=== PATIENT | male | born 1985 | race Caucasian/White ===

== ENCOUNTER 2020-05-19 18:30 | Inpatient (IN) | payer OTHER ==
[~2020-05-19] VITALS: Ht 177.8 cm; Wt 83.8 kg
[2020-05-19 19:42] LABS: BASO % 0.2 % (0.0-1.0); EOS # 0.1 10^3/uL (0.0-0.5); EOS % 0.8 % (0.0-3.0); HEMATOCRIT 44.5 % (42.0-52.0); HEMOGLOBIN 14.6 g/dl (13.5-17.5); LYMPH # 2.4 10^3/uL (1.5-5.0); LYMPH % 13.1 % (24.0-44.0); MEAN CORPUSCULAR HEMOGLOBIN 28.2 pg (27.0-33.0); MEAN CORPUSCULAR HGB CONC 32.8 g/dl (32.0-36.5); MEAN CORPUSCULAR VOLUME 86.1 fl (80.0-96.0); MONO # 1.5 10^3/uL (0.0-0.8); NEUTROPHILS # 14.1 10^3/uL (1.5-8.5); NEUTROPHILS % 77.5 % (36.0-66.0); PLATELET COUNT, AUTOMATED 309 10^3/uL (150-450); RED BLOOD COUNT 5.17 10^6/uL (4.30-6.10); WHITE BLOOD COUNT 18.2 10^3/uL (4.0-10.0)
[2020-05-19] MEDS ORDERED: MORPHINE 4 MG/ML 1ML VIAL/SYRINGE (J2270) IV PRN (19:45)
[2020-05-19] MEDS ORDERED: ONDANSETRON 4MG/2ML VIAL IV ONE (19:45)
[2020-05-19] MEDS ORDERED: ISOVUE-370 76% 100ML VIAL As Ordered ONE (20:28)
--- NOTE | 2020-05-19 21:05 | REPVR ---
PROCEDURE INFORMATION: Exam: CT Abdomen And Pelvis With Contrast Exam date and time: 05/19/2020 8:36 PM Age: 34 years old Clinical indication: Abdominal pain; Additional info: Rlq R/O appy TECHNIQUE: Imaging protocol: Computed tomography of the abdomen and pelvis with intravenous contrast. Radiation optimization: All CT scans at this facility use at least one of these dose optimization techniques: automated exposure control; mA and/or kV adjustment per patient size (includes targeted exams where dose is matched to clinical indication); or iterative reconstruction. Contrast material: ISOVUE 370; Contrast volume: 100 ml; Contrast route: INTRAVENOUS (IV); COMPARISON: No relevant prior studies available. FINDINGS: Liver: Normal. No mass. Gallbladder and bile ducts: Normal. No calcified stones. No ductal dilation. Pancreas: Normal. No ductal dilation. Spleen: Normal. No splenomegaly. Adrenal glands: Normal. No mass. Kidneys and ureters: Normal. No hydronephrosis. Stomach and bowel: Dilated loop of ileum in the right lower quadrant associated with a narrowed segment of the terminal ileum associated with wall thickening and mucosal enhancement, findings consistent with inflammatory bowel disease. Appendix: The appendix demonstrates diffuse distention measuring 12 mm with Ingrid appendiceal inflammation, consistent with acute appendicitis. No abscess or fluid collection demonstrated. Intraperitoneal space: Unremarkable. No free air. No significant fluid collection. Vasculature: Unremarkable. No abdominal aortic aneurysm. Lymph nodes: Unremarkable. No enlarged lymph nodes. Urinary bladder: Unremarkable as visualized. Reproductive: Unremarkable as visualized. Bones/joints: Unremarkable. No acute fracture. Soft tissues: Unremarkable. IMPRESSION: 1. Acute appendicitis possibly related to inflammatory bowel disease. 2. Dilated loop of ileum in the right lower quadrant associated with a narrowed segment of the terminal ileum associated with wall thickening and mucosal enhancement, findings consistent with inflammatory bowel disease. A critical call has been made to speak with the ordering physician/practitioner. This report will be amended once consultation has occurred. Electronically signed by: Abdi Kilpatrick On 05/19/2020 21:06:09 PM
[2020-05-19] MEDS ORDERED: NALOXONE INJ 0.4MG/1ML VIAL (J2310 PER 1MG) IV STA (21:21)
[2020-05-19] MEDS ORDERED: NALOXONE INJ 0.4MG/1ML VIAL (J2310 PER 1MG) As Ordered ONE (21:23)
[2020-05-19] MEDS ORDERED: NALOXONE 2MG/2ML SYRINGE (J2310 PER 1MG) IV STA (21:30)
[2020-05-19] MEDS ORDERED: NS 1,000 ML IV SCH (21:30)
[2020-05-19] MEDS ORDERED: NALOXONE 2MG/2ML SYRINGE (J2310 PER 1MG) As Ordered ONE (21:32)
[2020-05-19] MEDS ORDERED: PIPERACILLIN/TAZOBACTAM SOD 3.375 GM in D5W MINI-BAG PLUS 50 ML IV ONE (22:00)
[2020-05-19] MEDS ORDERED: KETOROLAC 30 MG/ML 1ML VIAL IV PRN (22:30)
[2020-05-19] MEDS ORDERED: ACETAMINOPHEN TAB 650MG DOSE (2X325MG) PO PRN (22:30)
[2020-05-19] MEDS ORDERED: ONDANSETRON 4MG/2ML VIAL IV PRN (22:30)
[2020-05-19] MEDS: NS 1,000 ML IV SCH (22:52)
[2020-05-20 01:50] VITALS: BP 155/66
[2020-05-20 02:55] LABS: HEMATOCRIT 42.2 % (42.0-52.0); HEMOGLOBIN 13.4 g/dl (13.5-17.5); MEAN CORPUSCULAR HEMOGLOBIN 27.8 pg (27.0-33.0); MEAN CORPUSCULAR HGB CONC 31.8 g/dl (32.0-36.5); MEAN CORPUSCULAR VOLUME 87.6 fl (80.0-96.0); PLATELET COUNT, AUTOMATED 273 10^3/uL (150-450); RED BLOOD COUNT 4.82 10^6/uL (4.30-6.10); WHITE BLOOD COUNT 18.6 10^3/uL (4.0-10.0)
[2020-05-20 06:00] VITALS: BP 153/68
[2020-05-20] MEDS: NS 1,000 ML IV SCH (06:18)
[2020-05-20] MEDS: PIPERACILLIN/TAZOBACTAM SOD 3.375 GM in D5W MINI-BAG PLUS 50 ML IV SCH ×3 (06:18→18:22)
[2020-05-20] MEDS: SENOKOT S TAB PO SCH ×2 (08:10→20:44)
[2020-05-20 09:53] LABS: HEMATOCRIT 40.9 % (42.0-52.0); HEMOGLOBIN 13.3 g/dl (13.5-17.5); MEAN CORPUSCULAR HEMOGLOBIN 28.6 pg (27.0-33.0); MEAN CORPUSCULAR HGB CONC 32.5 g/dl (32.0-36.5); PLATELET COUNT, AUTOMATED 258 10^3/uL (150-450); RED BLOOD COUNT 4.65 10^6/uL (4.30-6.10); WHITE BLOOD COUNT 13.8 10^3/uL (4.0-10.0)
--- NOTE | 2020-05-20 10:58 | HPE ---
CONSULTATION DATE OF CONSULT: 05/20/20 REASON FOR CONSULT: Abdominal pain. HISTORY OF PRESENT ILLNESS: Patient is a 34-year-old male who started experiencing right lower quadrant abdominal pain yesterday. He was driving from [place] to [place]. He had to stop here on the way because the pain was getting so severe he could not make it home. In the Emergency Room his vitals were stable, his white count was elevated to 18.[address] was suspicious for appendicitis so I was called to admit him. I admitted him overnight with plan to take him to the operating room in the morning of appendectomy. While I was at home I pulled up his images and was able to see that his terminal ileum was also severely thickened and inflamed in addition to the appendix raising suspicion moreso for inflammatory bowel disease versus terminal ileitis as opposed to just a simple appendicitis therefore surgery was canceled and I saw him this morning. He has had a couple of doses of antibiotics so far, he is already feeling improved. His white count did not improve into the middle of the night, but this morning it is from 18 down to 13.8. He has minimal pain, denies any nausea or vomiting. No fevers or chills. No problems with bowel movements. He has never had any history of bowel movement issues in the past. No diarrhea or constipation. No bloody stools. No family history of GI diseases. No prior colonoscopy or surgery or trauma to the abdomen. No recent illnesses either. PAST MEDICAL HISTORY: Negative. PAST SURGICAL HISTORY: Negative. ALLERGIES: None. HOME MEDICATIONS: None. SOCIAL HISTORY: Drinks socially, smokes a pack a day, also smokes marijuana. No other drug abuse. FAMILY HISTORY: Noncontributory. REVIEW OF SYSTEMS: Pertinent positives and negatives as stated in the HPI. PHYSICAL EXAMINATION: General: Patient is A&O times 3, in no acute distress. Vital signs: Temp 97.8, pulse 78, respirations 18, blood pressure 153/68, pulse ox 98% on room air. HEENT: Pupils equal, round and reactive to light and accommodation. Heart: S1 and S2 regular rate and rhythm. Lungs: Clear to auscultation bilaterally. Abdomen: Soft, mild tenderness in the right lower quadrant only, no guarding or rebound, no rigidity. Extremities: No clubbing, cyanosis or edema. LABORATORY DATA: White count 18.2 on admission down to 13.8, hemoglobin 13.3, platelets 258. IMAGING: CT abdomen and pelvis shows a dilated loop of ilium in the right lower quadrant with narrowed segment of the terminal ilium with wall thickening and mucosal enhancement - findings consistent with inflammatory bowel disease. The appendix is dilated at 12 mm with some periappendiceal inflammation consistent with acute appendicitis. No abscess or fluid collections demonstrated. ASSESSMENT AND PLAN: Patient is a 34-year-old male with inflammation around the terminal ilium as well as the appendix suspicious for terminal ileitis with reactive appendicitis possibly due to an underlying inflammatory bowel disease. Recommendation at this time is to avoid surgery due to it being very difficult to remove the appendix without interfering with the terminal ilium. He has already improved with just I.V. antibiotics. Plan is to start him on a low fiber diet. I have also discussed his case with GI who recommended a low dose steroid to start him on. We will start the steroid this morning, continue with the antibiotics. If he continues to improve and is feeling well by tomorrow we will plan for discharge home tomorrow and he can follow up with GI as an outpatient for possible scoping and treatment as needed.
[2020-05-20] MEDS: BUDESONIDE EC 3 MG CAP (ENTOCORT EC) PO SCH (12:35)
[2020-05-20 14:00] VITALS: BP 146/79
[2020-05-20 22:00] VITALS: BP 142/76
[2020-05-21] MEDS: PIPERACILLIN/TAZOBACTAM SOD 3.375 GM in D5W MINI-BAG PLUS 50 ML IV SCH ×2 (00:26→05:28)
[2020-05-21 06:00] VITALS: BP 121/70
[2020-05-21 07:35] LABS: HEMATOCRIT 41.1 % (42.0-52.0); MEAN CORPUSCULAR HGB CONC 31.6 g/dl (32.0-36.5); MEAN CORPUSCULAR VOLUME 88.6 fl (80.0-96.0); PLATELET COUNT, AUTOMATED 276 10^3/uL (150-450); RED BLOOD COUNT 4.64 10^6/uL (4.30-6.10); WHITE BLOOD COUNT 11.2 10^3/uL (4.0-10.0)
[2020-05-21 07:59] LABS: BLOOD UREA NITROGEN 12 MG/DL (7-18); CALCIUM LEVEL 8.4 MG/DL (8.5-10.1); CARBON DIOXIDE LEVEL 30 MEQ/L (21-32); CHLORIDE LEVEL 107 MEQ/L (98-107); CREATININE FOR GFR 1.02 MG/DL (0.70-1.30); GLOMERULAR FILTRATION RATE > 60.0 (>60); GLUCOSE, FASTING 120 MG/DL (70-100); POTASSIUM SERUM 3.9 MEQ/L (3.5-5.1); SODIUM LEVEL 140 MEQ/L (136-145)
[2020-05-21] MEDS ORDERED: BUDE3CAP PO (09:57)
[2020-05-21] MEDS ORDERED: METR-265 PO (09:57)
[2020-05-21] MEDS ORDERED: CIPR500T3 PO (09:57)
--- NOTE | 2020-05-21 09:59 | IPNPDOC ---
Text Note Date of Service The patient was seen on 05/21/20. NOTE Patient doing well. Tolerating regular food, no abdominal pain. He wishes to go home VS stable On exam looks well, very comfortable abdomen soft, nondistended, nontender Impression/Plan Probably inflammatory bowel disease reactive appendicitis OK to go home on cipro/flagyl and budesonide follow up with GI (Dr. Varghese) or if he wants somebody local in [facility] will need to coordinate with her FINE PATCHER for referral regular diet VS,Fishbone, I+O VS, Fishbone, I+O Laboratory Tests 05/21/20 07:18 Vital Signs Date Time Temp Pulse Resp B/P (MAP) Pulse Ox O2 Delivery O2 Flow Rate FiO2 05/21/20 06:00 98.2 85 21 121/70 (87) 98 Room Air I&O- Last 24 Hours up to 6 AM 05/21/20 06:00 Intake Total 2175 ml Output Total 0 ml Balance 2175 ml CHENTE CAMPBELL MD May 21, 2020 09:59
[2020-05-21] MEDS: BUDESONIDE EC 3 MG CAP (ENTOCORT EC) PO SCH (10:00)
== END 2020-05-21 10:15 | disposition home or self-care (01) | DRG 249 ==
LOC: M ED 18:30 → M ED INP 22:20 → M MSPAV 05-20 02:34
PROVIDERS: ADMIT Surgery; ATTEND Surgery
DX: K52.9 Noninfective gastroenteritis and colitis, unspecified (principal); K35.80 Unspecified acute appendicitis; F17.200 Nicotine dependence, unspecified, uncomplicated; F12.90 Cannabis use, unspecified, uncomplicated